=== PATIENT | female | born 1980 | race Caucasian/White ===

== ENCOUNTER 2017-02-10 22:44 | Inpatient (IN) | payer MEDICAID, OTHER ==
[~2017-02-10] VITALS: Ht 167.6 cm; Wt 71.4 kg
[~2017-02-10 22:44] MED LIST: IBUP-1223 PO; LISI-170 PO
[2017-02-10] MEDS ORDERED: CEFTRIAXONE PMX 1GM/50ML 50 ML IV ONE (23:00)
[2017-02-10] MEDS ORDERED: SODIUM CHLORIDE FLUSH 10ML SYR IVF ONE (23:00)
[2017-02-10] MEDS ORDERED: VANCOMYCIN PER PHARMACY IV ONE (23:00)
[2017-02-10] MEDS ORDERED: SODIUM CHLORIDE 0.9% 1,000ML IVBOLUS ONE ×2 (23:00→23:30)
[2017-02-10] MEDS ORDERED: CEFTRIAXONE PMX 1GM/50ML 50 ML ONE (23:10)
[2017-02-10 23:17] LABS: HEMOGLOBIN 12.1 g/dL (11.7-16.4)
[2017-02-10 23:26] LABS: PATH.CAST-FLAG NOT PRESENT; SPERM-FLAG NOT PRESENT; SRC-FLAG NOT PRESENT; XTAL-FLAG NOT PRESENT; YLC-FLAG NOT PRESENT
[2017-02-10 23:29] LABS: BLOOD UREA NITROGEN 15 mg/dL (7-18)
[2017-02-10] MEDS ORDERED: VANCOMYCIN 1,400 MG in SODIUM CHLORIDE 0.9% 250 ML IV ONE (23:30)
[2017-02-10 23:32] LABS: ASPARTATE AMINO TRANSFERASE 250 U/L (15-37)
[2017-02-11] MEDS ORDERED: ACETAMINOPHEN 325 MG TABLET PO PRN (00:30)
[2017-02-11] MEDS ORDERED: PHARMACY MAY ADJ FOR RENAL FX MC PRN ×2 (00:30)
[2017-02-11] MEDS ORDERED: ONDANSETRON 2MG/ML, 2ML IVPush PRN (00:30)
[2017-02-11] MEDS ORDERED: LORazepam 2 MG/ML, 1ML IVPush PRN ×2 (00:30)
[2017-02-11] MEDS ORDERED: hydrALAzine 20 MG/ML, 1ML IVPush PRN (00:30)
[2017-02-11] MEDS ORDERED: MEROPENEM 1 GM in SODIUM CHLORIDE 0.9% 100 ML IVPB SCH (00:30)
[2017-02-11] MEDS ORDERED: POTASSIUM CHLORIDE 40 MEQ in SODIUM CHLORIDE 0.9% 500 ML IV ONE (00:30)
[2017-02-11] MEDS ORDERED: THIAMINE 100 MG in SODIUM CHLORIDE 0.9% 50 ML IV SCH (00:30)
[2017-02-11] MEDS ORDERED: VANCOMYCIN PER PHARMACY MC PRN (00:30)
[2017-02-11] MEDS ORDERED: PHARMACOKINETIC MONITORING MC PRN (02:00)
[2017-02-11] MEDS ORDERED: THIAMINE 100 MG in SODIUM CHLORIDE 0.9% 100 ML IV SCH (02:00)
[2017-02-11] MEDS: HYDROmorphone 2 MG/ML, 1ML IVPush PRN ×3 (02:02→18:47)
[2017-02-11] MEDS: MEROPENEM 1 GM in SODIUM CHLORIDE 0.9% 50 ML IVPB SCH ×3 (02:44→18:47)
[2017-02-11] MEDS: ENOXAPARIN 40 MG/0.4 ML SQ SCH (02:45)
[2017-02-11] MEDS: SODIUM CHLORIDE 0.9% 1,000 ML IV SCH ×3 (02:58→23:36)
[2017-02-11 03:04] VITALS: BP 101/65
[2017-02-11 06:30] VITALS: BP 92/53
[2017-02-11] MEDS ORDERED: FAMOTIDINE 20 MG/2 ML IVPush SCH (09:00)
[2017-02-11] MEDS ORDERED: VANCOMYCIN 1,400 MG in SODIUM CHLORIDE 0.9% 250 ML IV SCH (12:00)
[2017-02-11 12:30] VITALS: BP 98/61
[2017-02-11] MEDS ORDERED: CEFTRIAXONE PMX 2GM/50ML 50 ML IV SCH (12:30)
[2017-02-11 18:29] VITALS: BP 112/69
[2017-02-11] MEDS ORDERED: POTASSIUM CHLORIDE 20 MEQ TAB.ER.PRT PO ONE (19:30)
[2017-02-11] MEDS ORDERED: THIAMINE 100MG TABLET PO ONE (19:30)
[2017-02-11] MEDS: GABAPENTIN 100 MG CAPSULE PO SCH (20:28)
[2017-02-11 20:41] LABS: DAU SCREEN DISCLAIMER
[2017-02-11] MEDS: HYDROcodone/APAP 5/325 TABLET PO PRN (23:57)
[2017-02-12 03:00] VITALS: BP 128/83
[2017-02-12] MEDS: HYDROcodone/APAP 5/325 TABLET PO PRN ×2 (04:01→19:16)
[2017-02-12] MEDS: GABAPENTIN 100 MG CAPSULE PO SCH ×4 (04:52→21:00)
[2017-02-12] MEDS: ENOXAPARIN 40 MG/0.4 ML SQ SCH ×2 (05:04→05:22)
[2017-02-12] MEDS: SODIUM CHLORIDE 0.9% 1,000 ML IV SCH ×3 (05:04→22:30)
[2017-02-12 05:16] LABS: HEMATOCRIT 34.5 % (34.6-47.8); HEMOGLOBIN 11.7 g/dL (11.7-16.4); WHITE BLOOD COUNT 8.5 x10^3/uL (3.4-10)
[2017-02-12 06:33] LABS: BLOOD UREA NITROGEN 11 mg/dL (7-18)
[2017-02-12 06:36] LABS: ASPARTATE AMINO TRANSFERASE 43 U/L (15-37)
[2017-02-12 06:57] VITALS: BP 117/81
[2017-02-12] MEDS: FOLIC ACID 1 MG TABLET PO SCH (09:25)
[2017-02-12] MEDS ORDERED: LORazepam 2 MG/ML, 1ML IVPush ONE (10:00)
[2017-02-12] MEDS ORDERED: POLYETHYLENE GLYCOL 17 GM PACKET PO PRN (10:00)
[2017-02-12] MEDS: SENNA/DOCUSATE TABLET PO SCH ×2 (10:15→19:16)
[2017-02-12 13:30] VITALS: BP 122/80
[2017-02-12] MEDS: CEFTRIAXONE 2,000 MG in DEXTROSE 5% 50 ML IV SCH (14:11)
[2017-02-12] MEDS ORDERED: LORazepam 0.5MG TABLET PO PRN (18:00)
[2017-02-12] MEDS ORDERED: LORazepam 1MG TABLET PO PRN ×4 (18:00)
[2017-02-12] MEDS ORDERED: LORazepam 2 MG/ML, 1ML IV PRN ×5 (18:00)
[2017-02-12 18:37] VITALS: BP 131/82
[2017-02-12] MEDS ORDERED: LORazepam 1MG TABLET ONE (19:12)
[2017-02-13 02:00] VITALS: BP 128/85
[2017-02-13] MEDS: GABAPENTIN 100 MG CAPSULE PO SCH ×4 (05:09→20:56)
[2017-02-13] MEDS: ENOXAPARIN 40 MG/0.4 ML SQ SCH (05:09)
[2017-02-13] MEDS: HYDROcodone/APAP 5/325 TABLET PO PRN ×3 (05:23→23:18)
[2017-02-13 05:35] LABS: HEMATOCRIT 36.7 % (34.6-47.8); HEMOGLOBIN 12.5 g/dL (11.7-16.4)
[2017-02-13 05:39] LABS: BLOOD UREA NITROGEN 7 mg/dL (7-18)
[2017-02-13 07:16] VITALS: BP 133/85
[2017-02-13] MEDS: FOLIC ACID 1 MG TABLET PO SCH (10:07)
[2017-02-13] MEDS: SENNA/DOCUSATE TABLET PO SCH ×2 (10:07→20:56)
[2017-02-13] MEDS: SODIUM CHLORIDE 0.9% 1,000 ML IV SCH (10:07)
[2017-02-13 14:46] VITALS: BP 119/79
[2017-02-13] MEDS: CEFTRIAXONE 2,000 MG in DEXTROSE 5% 50 ML IV SCH (15:20)
[2017-02-13 20:45] VITALS: BP 132/84
[2017-02-14 02:02] VITALS: BP 119/72
[2017-02-14] MEDS: SODIUM CHLORIDE 0.9% 1,000 ML IV SCH (03:00)
[2017-02-14 05:53] LABS: HEMATOCRIT 37.8 % (34.6-47.8); WHITE BLOOD COUNT 7.1 x10^3/uL (3.4-10)
[2017-02-14] MEDS: GABAPENTIN 100 MG CAPSULE PO SCH (06:00)
[2017-02-14] MEDS: ENOXAPARIN 40 MG/0.4 ML SQ SCH (06:00)
[2017-02-14 06:09] LABS: BLOOD UREA NITROGEN 9 mg/dL (7-18)
[2017-02-14 08:45] VITALS: BP 122/81
[2017-02-14] MEDS: HYDROcodone/APAP 5/325 TABLET PO PRN (08:51)
[2017-02-14] MEDS: FOLIC ACID 1 MG TABLET PO SCH (08:51)
[2017-02-14] MEDS: SENNA/DOCUSATE TABLET PO SCH (08:51)
[2017-02-14] MEDS ORDERED: CEFTRIAXONE 2,000 MG in SODIUM CHLORIDE 0.9% 50 ML IV SCH (09:40)
== END 2017-02-14 10:03 | disposition left against medical advice (07) | DRG 871 ==
LOC: ED 23:46 → UNDOADMIN 23:58 → EDIP 23:58 → 4WST 02-11 01:42 → UNDODISIN 02-14 10:03
PROVIDERS: ADMIT Family Medicine; ATTEND Family Medicine
PROC: 0T9B70Z Drainage of Bladder with Drainage Device, Via Natural or Artificial Opening (ICD-10-PCS; principal; 2017-02-11)
DX: A41.51 Sepsis due to Escherichia coli [E. coli] (principal); G93.40 Encephalopathy, unspecified; I33.0 Acute and subacute infective endocarditis; E44.0 Moderate protein-calorie malnutrition; R16.1 Splenomegaly, not elsewhere classified; N39.0 Urinary tract infection, site not specified; R65.20 Severe sepsis without septic shock; B96.20 Unspecified Escherichia coli [E. coli] as the cause of diseases classified elsewhere; E87.6 Hypokalemia; F15.10 Other stimulant abuse, uncomplicated; R73.9 Hyperglycemia, unspecified; F19.10 Other psychoactive substance abuse, uncomplicated; I10 Essential (primary) hypertension; K21.9 Gastro-esophageal reflux disease without esophagitis; M79.7 Fibromyalgia; Z68.25 Body mass index [BMI] 25.0-25.9, adult; Z88.0 Allergy status to penicillin; Z88.8 Allergy status to other drugs, medicaments and biological substances
CPT/HCPCS: 36415; 71010; 74000; 76700; 78226; 80048; 80053; 80307; 81001; 82040; 83605; 83735; 84100; 84145; 85025; 85610; 85651; 85730; 86140; 87040; 87077; 87086; 87186; 93005; 93017; 93306; 96361; 96365; 96366; 96368; J0696; J1170; J1650; J2185; J3370; J3411; J3480; A9537; G0479; J2060; J7030; J7040; J7050; S0028

== ENCOUNTER 2017-10-19 19:09 | Emergency (ER) | payer MEDICAID, OTHER ==
[~2017-10-19] VITALS: Ht 167.6 cm; Wt 69.0 kg
[2017-10-19 19:29] VITALS: BP 123/80
[2017-10-19 20:40] LABS: BASOPHILS # (AUTO) 0.09 x10^3/uL (0-0.1); BASOPHILS % (AUTO) 1 % (0-1); EOSINOPHILS # (AUTO) 0.05 x10^3/uL (0-0.4); EOSINOPHILS % (AUTO) 0 % (1-7); LYMPHOCYTES # (AUTO) 2.65 x10^3/uL (1-3.4); LYMPHOCYTES % (AUTO) 24 % (22-44); MD NO; MEAN CORPUSCULAR HEMOGLOBIN 30.2 pg (27.0-34.8); MEAN CORPUSCULAR VOLUME 88.8 fL (80-100); MONOCYTES # (AUTO) 0.66 x10^3/uL (0.2-0.8); MONOCYTES % (AUTO) 6 % (2-9); NEUTROPHILS # (AUTO) 7.71 x10^3/uL (1.8-6.8); NEUTROPHILS % (AUTO) 69 % (42-75); PLATELET COUNT 489 x10^3/uL (130-400); RED BLOOD COUNT 4.74 x10^6/uL (3.82-5.3); RED CELL DISTRIBUTION WIDTH 13.5 % (9.6-15.2)
[2017-10-19 20:48] LABS: ALANINE AMINOTRANSFERASE 34 U/L (12-78); ALBUMIN 3.5 g/dL (3.4-5.0); ANION GAP 9 mmol/L (5-15); CALCIUM 8.8 mg/dL (8.5-10.1); CHLORIDE 110 mmol/L (98-107); CREATININE 0.73 mg/dL (0.55-1.02)
[2017-10-19 20:50] LABS: SALICYLATE LEVEL < 1.7 mg/dL (2.8-20.0)
[2017-10-19 20:53] LABS: ALKALINE PHOSPHATASE 82 U/L (45-117); BILIRUBIN,TOTAL 0.3 mg/dL (0.2-1.0)
[2017-10-19 20:55] LABS: AMPHETAMINE SCREEN, URINE Positive (Negative); BARBITURATE SCREEN, URINE Negative (Negative); BENZODIAZEPINE SCREEN, URINE Negative (Negative); CANNABINOID SCREEN, URINE Negative (Negative); COCAINE SCREEN, URINE Negative (Negative); METHADONE SCREEN, URINE Negative (Negative); OPIATE SCREEN, URINE Negative (Negative)
[2017-10-19 21:20] LABS: ACETAMINOPHEN < 2 mcg/mL (10-30)
== END 2017-10-19 22:03 | disposition home or self-care (01) ==
LOC: ED 21:36
DX: S10.91XA Abrasion of unspecified part of neck, initial encounter (principal); T71.164A Asphyxiation due to hanging, undetermined, initial encounter; R45.851 Suicidal ideations; F15.90 Other stimulant use, unspecified, uncomplicated; I10 Essential (primary) hypertension; K21.9 Gastro-esophageal reflux disease without esophagitis; Z79.899 Other long term (current) drug therapy; W19.XXXA Unspecified fall, initial encounter; Y93.89 Activity, other specified; Y92.89 Other specified places as the place of occurrence of the external cause; Y99.8 Other external cause status
CPT/HCPCS: 36415; 70450; 80053; 80307; 80329; 84703; 85025; 93005; 93880; 99285; G0480